=== PATIENT | female | born 1985 | race Caucasian/White ===

== ENCOUNTER 2020-02-04 12:53 | Emergency (ER) | payer BC ==
[2020-02-04 13:33] VITALS: BP 144/82; TEMP 97.5; O2SAT 98
[2020-02-04] MEDS ORDERED: cefTRIAXone SODIUM 1 GM VIAL IM ONE (13:43)
--- NOTE | 2020-02-04 13:46 | ED.PDOC ---
History of Present Illness - General Chief Complaint: ENT Problem Stated Complaint: Sore throat x 3 days Time Seen by Provider: 02/04/20 13:42 Source: patient - History of Present Illness Initial Comments: Pt reports sore throat for past few days. Minimal cough. No F/C. No SOB. Speaking fine, swallowing fine. Pt has h/o strep throat and says it feels the same. Timing/Duration: gradual Severity: moderate EENT Location: throat Improving Factors: nothing Worsening Factors: nothing Associated Symptoms: denies symptoms Allergies/Adverse Reactions: Allergies NO KNOWN ALLERGY Allergy (Verified 02/04/20 13:31) Home Medications: Ambulatory Orders Amphetamine-Dextroamphetamine [Adderall 15 mg] 1 tab PO BID 02/04/20 RX: Amoxicillin 500 mg PO TID #21 tab 02/04/20 Review of Systems - Review of Systems Constitutional: States: no symptoms reported EENTM: States: throat pain. Denies: ear discharge, nose pain, nose congestion, throat swelling, mouth pain, mouth swelling Respiratory: States: cough. Denies: short of breath, stridor, wheezing Cardiology: States: no symptoms reported. Denies: chest pain, palpitations Genitourinary: States: no symptoms reported Musculoskeletal: States: no symptoms reported Skin: States: no symptoms reported Endocrine: States: no symptoms reported Past Medical History (General) - Patient Medical History Hx Stroke: No Hx of COPD: No Hx Cardiac Disorders: No Hx Congestive Heart Failure: No Hx Hypertension: No Hx Diabetes: No Hx Cancer: No Surgical History: no surgical history - Vaccination History Hx Tetanus, Diphtheria Vaccination: No Hx Influenza Vaccination: No Hx Pneumococcal Vaccination: No - Social History Hx Tobacco Use: Yes Hx Alcohol Use: Yes Hx Substance Use: No Hx Substance Use Treatment: No Hx Depression: No - Female History Patient is a Female of Child Bearing Age (10 -59 yrs old): No Patient : No Family Medical History - Family History Father Living Status: Still Living Hx Family Hypertension: Yes Physical Exam - Physical Exam General Appearance: Alert, Comfortable, No apparent distress Nasal Exam: normal inspection Throat Exam: pharynx swelling - and erythema, tonsillar swelling - and erythema, other - Nl uvula, nl voice, swallowing own secreations. Neck: non-tender, full range of motion, supple, normal inspection Cardiovascular/Respiratory: regular rate, rhythm, no M/R/G, normal peripheral pulses, no JVD, normal breath sounds, no respiratory distress Abdominal Exam: non-tender, no organomegaly, no hernia Neurologic: alert, normal mood/affect Skin Exam: normal color, warm/dry Departure - Departure Clinical Impression: Acute pharyngitis, History of strep pharyngitis Time of Disposition: 13:45 Disposition: Discharge to Home or Self Care Departure Forms: ED Discharge - Pt. Copy, Patient Portal Self Enrollment Instructions: DI for Ear Pain-Adult Diet: resume usual diet Prescriptions: RX: Amoxicillin 500 mg PO TID #21 tab Home Medications: Ambulatory Orders Amphetamine-Dextroamphetamine [Adderall 15 mg] 1 tab PO BID 02/04/20 RX: Amoxicillin 500 mg PO TID #21 tab 02/04/20
[2020-02-04] MEDS ORDERED: LIDOCAINE 1% 10 ML VIAL INJ ONE (13:49)
== END 2020-02-04 14:00 | disposition home or self-care (01) ==
LOC: ER 12:53
DX: J02.9 Acute pharyngitis, unspecified (principal); R05 Cough; F17.200 Nicotine dependence, unspecified, uncomplicated